=== PATIENT | female | born 1955 | race Caucasian/White ===

== ENCOUNTER → 2019-11-20 | Outpatient (CLI) | payer OTHER ==
[~2019-11-20] MED LIST: SYNTHROID75 MCG PO
== END | disposition home or self-care (01) ==
LOC: MAMO-SONO 11-16 10:45 → SONOGRAMA 11:54
PROVIDERS: ATTEND Family Medicine Adult Medicine
DX: N60.19 Diffuse cystic mastopathy of unspecified breast (principal); N64.59 Other signs and symptoms in breast